=== PATIENT | male | born 1935 ===

== ENCOUNTER 2022-04-14 23:14 | Inpatient (IN) | payer OTHER, SELFPAY ==
--- NOTE | 2022-04-14 22:23 | HPE_ITS ---
Date of service: 04/14/22 Time of Service: 23:45 Assessment and Plan Assessment and plan (1) COVID-19: Status: Acute Assessment and plan: Admit to medical surgical floor. Treat with remdesivir, dexamethasone. Encourage proning, pulmonary toileting. supplement Vitamin C, D, zinc, melatonin. Ideally would be on anticoagulation, but the patient has Afib and he is not on blood thinners, per the ED doctor at [facility]. We will clarify if he is or is not on blood thinners with the VNA and make a decision as to how to proceed. (2) Secondary bacterial pneumonia: Status: Acute Assessment and plan: Treat with doxycycline and ceftriaxone. (3) Hypoxia: Status: Acute Assessment and plan: Due to above - as above. (4) Edema of left lower extremity: Assessment and plan: Chronic and I suspect this has to do with h/o CABG as the venous graft came from E. However, we will obtain a venous doppler to ensure that there is no DVT. (5) DVT prophylaxis: Status: Acute Assessment and plan: As above - we are holding off on starting dvt ppx or full anticoagulation until more is known about Mr Cardenas's history. Will also check hematest. (6) Discharge planning issues: Status: Acute Assessment and plan: DNR/DNI. History of Present Illness History of Present Illness Chief Complaint: Found to be hypoxic by a VNA nurse, cough for a couple of days Narrative: Mr Theresa Dowd) is an 86 year old male with PMHx of CAD, CVA with residual L sided weakness, CHF with unknown EF, Afib not on anticoagulation, who is being transferred to [facility] from [facility] ED due to lack of bed capacity there for COVID-19, secondary bacterial pneumonia, and hypoxia. Mr Cardenas is a [facility] patient. He answers a long time to most of the questions about his symptoms when I ask him. Today he had a visit from a VNA nurse who found him to be saturating in mid-80s on RA (he does not normally wear oxygen). The same was confirmed at [facility] ED, where the patient had required between 2 and 3 L of O2 by [place], desaturating d own to 85 on RA. He has had malaise, two days of cough productive of yellow sputum, shortness of breath, and fatigue. The patient also endorses some long- standing abdominal discomfort but not pain. Denies nausea and diarrhea. He tested positive for COVID-19 at the [facility] ED where he was febrile. His CXR at [facility] is unavailable for my review, but per Dr Bermeo of [facility] ED reveals Bilateral interstitial changes and a R-sided consolidation. He was initiated on remdesivir, dexamethasone, and empiric levofloxacin given suspicion for a secondary bacterial pneumonia. Due to lack of bed capacity at both [facility] and the [place], hospitalist admission at [facility] was requested. Patient is felt to be appropriate for a medical surgical floor. He is DNR/DNI. Satish states that he was the inspiration for the movie Captain Satish featuring Franck Barreto. I'm Captain Satish! Review of Systems All systems reviewed & are unremarkable except as noted in HPI and below PFSH All Active Problems (Updated 04/15/22 @ 00:23 by Roxann Shay MD) Discharge planning issues (Acute) DVT prophylaxis (Acute) Hypoxia (Acute) Secondary bacterial pneumonia (Acute) COVID-19 (Acute) Medical History (Updated 04/15/22 @ 00:23 by Roxann Shay MD) AAA (abdominal aortic aneurysm) Afib Blindness CAD (coronary artery disease) CHF (congestive heart failure) CVA (cerebral vascular accident) Edema of left lower extremity GERD (gastroesophageal reflux disease) Obesity Surgical History (Updated 04/15/22 @ 00:23 by Roxann Shay MD) 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) Family History (Updated 04/15/22 @ 00:22 by Roxann Shay MD) Other Family history unobtainable Social History Smoking/Tobacco Use Status: Former Tobacco Use Tobacco: How many years used: 30 Smoking risk assessment performed?: Yes Alcohol Intake: former Drug use: Never Substance use type: does not use Do you feel safe at home: Yes Do you feel safe in your relationship?: Yes Meds Allergies and Home Medications Allergies Allergy/AdvReac Type Severity Reaction Status Date / Time No Known Allergies Allergy Unverified 04/14/22 22:33 Allergy/Medication Comments:: Patient does not remember his medications. We will get the list from VNA in am. Exam Narrative Exam Narrative: General: A very pleasant elderly male with an excellent sense of humor, A&Ox3, looks comfortable in bed Neurological: A&Ox3 (knows it's the end of March of 2022), Limited ROM in LUE, forgetful, difficulty seeing, no focal deficits Psychiatric: Appropriate speech pattern/content Skin: Changes of chronic venous stasis dermatitis HEENT: Atraumatic, normocephalic, EOMI, MMM, clear oropharynx, no submandibular or cervical lymphadenopathy, no goiter or JVD Cardiovascular: RRR, no m/r/g Lungs: slight rhonchi B Gastrointestinal: soft, nontender, nondistended Genitourinary: deferred Extremities: +1 LLE edema (patient states this is chronic), no edema RLE, 1+ pedal pulses B, no c/c. Results Labs Result diagrams: 04/15/22 05:35 04/15/22 05:35 Labs: At [facility]: WBC 7.2 H/H 13.5/40.2 Plts 158 MCV 96.6 Segs 77 Lymphs 3 Monos 20 Chemistry: Na 139 K 4.2 Chloride 101 Bicarb 30 AG 8 BUN 18 Cr 1.33 Glucose 93 Ca 9.5 AST 21 ALT 31 Albumin 3.9 T. Bili 0.8 High Sensitivity Troponin I 23.9 pg/mL (considered normal)
[2022-04-14 23:30] VITALS: PULSE 78
[2022-04-14 23:41] VITALS: BP 107/75; PULSE 68; RESP 20; TEMP 37.6; O2SAT 96
[2022-04-15] VITALS (8 sets, daily range): BP systolic 125–136; BP diastolic 71–91; PULSE 71–94; RESP 18–19; TEMP 36.4–37.2; O2SAT 95–99
[2022-04-15] MEDS: Acetaminophen 325 MG TAB PO (03:44)
[2022-04-15] MEDS: Melatonin 3 MG TAB PO ×2 (03:45→20:47)
[2022-04-15 08:15] LABS: Abs Immature Grans 0.01 10^3/uL (0.0-0.06); Absolute Basophil Count 0.01 10^3/uL (0.0-0.2); Absolute Lymphocyte Count 0.79 10^3/uL (1.2-3.4); Absolute Monocyte Count 0.24 10^3/uL (0.1-0.8); Absolute Neutrophil Count 3.87 10^3/uL (1.2-6.7); Basophils % 0.2; HCT 37.1 % (40.0-50.0); HGB 12.5 g/dL (13.5-17.5); Immature Grans % 0.2; Lymphocytes % 16.1; MCH 31.7 pg (27.0-33.0); MCHC 33.7 % (32.0-36.0); MCV 94 fL (80-95); MPV 10.7 fL (8.0-11.0); Monocytes % 4.9; Neutrophils % 78.6; Platelet Count 142 10^3/uL (130-400); RBC 3.94 10^6/uL (4.36-5.78); RDW 13.2 % (11.8-14.1); RDW-SD 45.8 fL; WBC 4.92 10^3/uL (4.4-10.8)
[2022-04-15 08:29] LABS: Hemoglobin A1C 5.7 % (<5.7)
[2022-04-15] MEDS: DOXYCYCLINE 100 MG in Normal Saline 100 ML IVPB ×2 (08:35→21:02)
[2022-04-15] MEDS: Cholecalciferol (Vitamin D3) 1,000 UNIT TAB 2000 UNITS PO (08:35)
[2022-04-15] MEDS: Normal Saline Flush 10 ML SYR IVP ×2 (08:35→20:27)
[2022-04-15] MEDS: guaiFENesin 600 MG TABCR PO ×2 (08:35→20:46)
[2022-04-15] MEDS: Zinc Sulfate 220 MG TAB PO (08:35)
[2022-04-15] MEDS: Famotidine 20 MG TAB PO (08:35)
[2022-04-15] MEDS: Benzonatate 100 MG CAP PO ×3 (08:36→20:46)
[2022-04-15] MEDS: Ascorbic Acid 500 MG TAB 1000 MG PO ×2 (08:36→20:46)
[2022-04-15 08:38] LABS: INR 1.2 (0.9-1.1); Prothrombin Time 11.6 sec (9.3-11.0)
--- NOTE | 2022-04-15 08:43 | PDOC.CMIN ---
- If Service Date Differs Date of service: 04/15/22 Time of Service: 08:43 Care Management Initial Assess REASON FOR HOSPITALIZATION:: COVID-19, Secondary bacterial pneumonia, PAST MEDICAL HISTORY/PAST SURGICAL HISTORY:: All Active Problems (Updated 04/15/22 @ 00:23 by Roxann Shay MD). Discharge planning issues (Acute). DVT prophylaxis (Acute). Hypoxia (Acute). Secondary bacterial pneumonia (Acute). COVID-19 (Acute). Medical History (Updated 04/15/22 @ 00:23 by Roxann Shay MD). AAA (abdominal aortic aneurysm). Afib. Blindness. CAD (coronary artery disease). CHF (congestive heart failure). CVA (cerebral vascular accident). Edema of left lower extremity. GERD (gastroesophageal reflux disease). Obesity. Surgical History (Updated 04/15/22 @ 00:23 by Roxann Shay MD). H/O heart valve replacement with bioprosthetic valve. S/P CABG (coronary artery bypass graft) PREVIOUS FUNCTIONAL STATUS/SOCIAL/FAMILY SUPPORTS:: Popeye lives alone in [place], [place]. He is legally blind. He has 2 friends which are supportive, Lizeth and Akash. Lizeth provides the majority of his transportation needs and also helps him with his groceries. Popeye has a Sister in [facility]. He also has a Son in [place] (which he is not on speaking terms with). Popeye has an outdoor cat, which his friend Lizeth is feeding in his absence. Popeye is [facility] connected and has [facility] from [facility]. The VNA helps him manage his medications. Popeye's Truer [employer] in the community is Fernanda (he will try to locate her info for CM). Popeye is independent with his ADL's and uses a cane to ambulate. CURRENT FUNCTIONAL STATUS:: Popeye is on covid isolations, CM met with pt via phone. Popeye is alert, oriented, friendly and easy to engage in conversation. Popeye shares that he was able to sleep last night in the recliner chair. ADVANCE DIRECTIVES:: None on file, CM will offer forms Has patient been provided with info about the portal/API?: Yes Did the patient sign up for the portal?: No CODE STATUS:: DNR/DNI INSURANCE COVERAGE / FINANCIAL ISSUES:: Medicare. VA CURRENT HOME/COMMUNITY SERVICES/EQUIPMENT:: [facility] Connected (CM notified [facility] of admission). [facility]. [facility]. Has a Folded Cloth Taper-Fernanda PRIMARY CARE PHYSICIAN:: Sen Trimble POTENTIAL DISCHARGE NEEDS:: Follow up appointents, resumption of VNA services PATIENT/FAMILY EDUCATION NEEDS:: Review discharge plan of care, including instructions, medications, limitations and plan to follow up with community providers. ask me three. TRANSPORTATION:: Via private vehicle with friend Lizeth. PLAN:: Popeye requires inpatient admission for close monitoring and treatment of Covid, bacterial pneumonia and hypoxia. Pt is currently on covid precautions. Popeye is VA connected (CM notified of admission.) Anticipate, Popeye will discharge home with resumption of [facility] services when medically cleared by [facility]. Popeye will follow up with his community providers and discharge plan of care as prescribed.
[2022-04-15 08:47] LABS: ALT 25 U/L (16-63); AST 35 U/L (15-37); Albumin 3.5 g/dL (3.4-5.0); Alkaline Phosphatase 99 U/L (46-116); Anion Gap 11.2 mmol/L (3-11); BUN 18 mg/dL (7-18); Bilirubin, Total 0.5 mg/dL (0.2-1.0); CO2 25.8 mmol/L (21.0-32.0); Chloride 103 mmol/L (98-107); Ferritin 214 ng/mL (26-388); Glucose 147 mg/dL (74-106); Magnesium 2.1 mg/dL (1.8-2.4); Sodium 140 mmol/L (136-145); TSH (W/Ref FT4) 0.48 uIU/mL (0.36-3.74); Total Protein 7.5 g/dL (6.4-8.2)
[2022-04-15 08:57] LABS: Procalcitonin < 0.1 ng/mL
[2022-04-15 08:58] LABS: D-Dimer 1301 ng/mlFEU (<500)
[2022-04-15 08:59] LABS: Bilirubin, Direct 0.2 mg/dL (0.0-0.2); C-Reactive Protein 2.99 mg/dL (0.0-0.3); Creatine Kinase 403 U/L (39-308)
[2022-04-15] MEDS: Ipratropium/Albuterol 4 GM 120 PUFF INH IH ×4 (09:00→20:58)
[2022-04-15] MEDS: Gabapentin 100 MG CAP PO (13:09)
--- NOTE | 2022-04-15 16:16 | W.PM.PROGNOT ---
Date of Service Date of service: 04/15/22 Time of Service: 15:18 Assessment and Plan Assessment and plan (1) COVID-19: Status: Acute Assessment and plan: Now stable on RA Treat with remdesivir, dexamethasone. Encourage proning, pulmonary toileting. supplement Vitamin C, D, zinc, melatonin. Clarified his home meds and he is not on any anticoagulation routinely. Start therapeutic lovenox 80mg SC Q12. Possible d/c tomorrow if not hypoxic. (2) Secondary bacterial pneumonia: Status: Acute Assessment and plan: Treat with doxycycline and ceftriaxone. (3) Hypoxia: Status: Acute Assessment and plan: Now on RA with O2 sats in the upper 90's. (4) Edema of left lower extremity: Assessment and plan: Chronic and I suspect this has to do with h/o CABG as the venous graft came from [facility]. However, we will obtain a venous doppler to ensure that there is no DVT. (5) DVT prophylaxis: Status: Acute Assessment and plan: Lovenox; therapeutic dosing given Covid + and not ICU status. Will also check hematest. (6) Discharge planning issues: Status: Acute Assessment and plan: DNR/DNI. Subjective Subjective Patient reports: feels better and afebrile; denies nausea, vomiting or shortness of breath Interval history since last seen: Feels anxious, mild tremors of hands. This is not a chronic issue he reports. Exam Narrative Exam Narrative: General: A very pleasant elderly male with an excellent sense of humor, states he feels much better Neurological: A&Ox3, some difficulty with memory. Psychiatric: Appropriate speech pattern/content Skin: Changes of chronic venous stasis dermatitis otherwise w/o rashes/lesions HEENT: MMM, sclera clear. Cardiovascular: RRR, no m/r/g Lungs:clear, diminished in the bases. Gastrointestinal: soft, nontender, nondistended Extremities: +1 LLE edema (patient states this is chronic), no edema RLE Objective Last Vital Signs Temp 37.2 C 04/15/22 15:29 Pulse 76 04/15/22 15:29 Resp 18 04/15/22 15:29 BP 128/78 04/15/22 15:29 Pulse Ox 97 04/15/22 15:29 Laboratory Results - last 24 hr 04/15/22 04/15/22 04/15/22 05:35 08:00 08:00 WBC 4.92 RBC 3.94 L Hgb 12.5 L Hct 37.1 L MCV 94 MCH 31.7 MCHC 33.7 RDW 13.2 Plt Count 142 MPV 10.7 Immature Gran % 0.2 Neutrophils % 78.6 Lymphocytes % 16.1 Monocytes % 4.9 Eosinophils % 0.0 Basophils % 0.2 Nucleated RBC % 0.0 Absolute Neutrophils 3.87 Absolute Lymphocytes 0.79 L Absolute Monocytes 0.24 Absolute Eosinophils 0.00 Absolute Basophils 0.01 PT INR D-Dimer Sodium 140 Potassium 4.0 Chloride 103 Carbon Dioxide 25.8 Anion Gap 11.2 H BUN 18 Creatinine 1.0 Estimated GFR/1.73 m2 >= 60.00 Glucose 147 H Hemoglobin A1c 5.7 Calcium 9.0 Magnesium 2.1 Ferritin 214 Total Bilirubin 0.5 Conjugated Bilirubin 0.2 AST 35 ALT 25 Alkaline Phosphatase 99 Creatine Kinase 403 H C-Reactive Protein 2.99 H Total Protein 7.5 Albumin 3.5 Procalcitonin TSH 0.48 04/15/22 04/15/22 08:00 08:00 WBC RBC Hgb Hct MCV MCH MCHC RDW Plt Count MPV Immature Gran % Neutrophils % Lymphocytes % Monocytes % Eosinophils % Basophils % Nucleated RBC % Absolute Neutrophils Absolute Lymphocytes Absolute Monocytes Absolute Eosinophils Absolute Basophils PT 11.6 H INR 1.2 H D-Dimer 1301 H Sodium Potassium Chloride Carbon Dioxide Anion Gap BUN Creatinine Estimated GFR/1.73 m2 Glucose Hemoglobin A1c Calcium Magnesium Ferritin Total Bilirubin Conjugated Bilirubin AST ALT Alkaline Phosphatase Creatine Kinase C-Reactive Protein Total Protein Albumin Procalcitonin < 0.1 TSH
[2022-04-15] MEDS: Enoxaparin 80 MG/0.8 ML SYR SC (17:06)
[2022-04-15] MEDS: cefTRIAXone 1 GM/50 ML BAG IVPB (20:21)
[2022-04-15] MEDS: Dexamethasone 4 MG/ML VIAL 6 MG IVP (20:22)
[2022-04-15] MEDS: Budesonide/Formoterol 80/4.5 6.9 GM 60 PUFF INH IH (20:28)
[2022-04-15] MEDS: REMDESIVIR 100 MG in Normal Saline 250 ML 250 MG IVPB (20:29)
[2022-04-15] MEDS: Normal Saline 500 ML 30 ML IV (20:29)
[2022-04-15] MEDS: LORazepam 0.5 MG TAB PO (20:47)
[2022-04-15] MEDS: dilTIAZem CD 120 MG CAPCR PO (20:47)
[2022-04-15] MEDS: Gabapentin 100 MG CAP 200 MG PO (21:07)
[2022-04-16 00:58] VITALS: BP 113/77; PULSE 79; RESP 20; TEMP 36.7; O2SAT 98
[2022-04-16 05:04] LABS: Vitamin D 25 Total 66.7 ng/mL (30-100)
[2022-04-16 05:08] VITALS: BP 105/67; PULSE 78; RESP 19; TEMP 36.6; O2SAT 98
[2022-04-16] MEDS: Enoxaparin 80 MG/0.8 ML SYR SC (05:10)
[2022-04-16 07:26] VITALS: PULSE 85
[2022-04-16 07:29] LABS: HCT 38.7 % (40.0-50.0); HGB 13.2 g/dL (13.5-17.5); MCH 31.5 pg (27.0-33.0); MCHC 34.1 % (32.0-36.0); MCV 92 fL (80-95); MPV 10.5 fL (8.0-11.0); Platelet Count 158 10^3/uL (130-400); RBC 4.19 10^6/uL (4.36-5.78); RDW 13.3 % (11.8-14.1); RDW-SD 45.5 fL
[2022-04-16] MEDS: Budesonide/Formoterol 80/4.5 6.9 GM 60 PUFF INH IH (07:39)
[2022-04-16] MEDS: Ipratropium/Albuterol 4 GM 120 PUFF INH IH ×2 (07:39→11:22)
[2022-04-16 07:52] LABS: C-Reactive Protein 1.76 mg/dL (0.0-0.3); Ferritin 238 ng/mL (26-388)
[2022-04-16 07:57] LABS: D-Dimer 1094 ng/mlFEU (<500)
[2022-04-16] MEDS: Gabapentin 100 MG CAP PO (08:16)
[2022-04-16] MEDS: DOXYCYCLINE 100 MG in Normal Saline 100 ML IVPB (08:16)
[2022-04-16] MEDS: Omeprazole 20 MG CAPCR 40 MG PO (08:16)
[2022-04-16] MEDS: Cholecalciferol (Vitamin D3) 1,000 UNIT TAB 2000 UNITS PO (08:16)
[2022-04-16] MEDS: Zinc Sulfate 220 MG TAB PO (08:17)
[2022-04-16] MEDS: Benzonatate 100 MG CAP PO (08:17)
[2022-04-16] MEDS: Metoprolol CR 100 MG TABCR 200 MG PO (08:17)
[2022-04-16] MEDS: Cetirizine 10 MG TAB PO (08:17)
[2022-04-16] MEDS: Famotidine 20 MG TAB PO (08:17)
[2022-04-16] MEDS: guaiFENesin 600 MG TABCR PO (08:17)
[2022-04-16] MEDS: dilTIAZem CD 120 MG CAPCR PO (08:17)
[2022-04-16] MEDS: Ascorbic Acid 500 MG TAB 1000 MG PO (08:17)
[2022-04-16] MEDS: Furosemide 20 MG TAB PO (08:18)
[2022-04-16 08:20] VITALS: BP 100/71; PULSE 98; RESP 18; TEMP 36.7; O2SAT 94
--- NOTE | 2022-04-16 09:12 | W.PM.DS.N ---
Date of service: 04/16/22 Time of Service: 08:12 DS: Diagnosis Discharge Diagnosis (1) COVID-19: Status: Acute (2) Secondary bacterial pneumonia: Status: Acute (3) Hypoxia: Status: Acute (4) Edema of left lower extremity: (5) DVT prophylaxis: Status: Acute (6) Discharge planning issues: Status: Acute Discharge Plan Disposition Patient Disposition: HOME Condition: Good Discharge Details Reason For Visit: COVID-19 w/ secondary bactrerial pneumonia, hypoxi Admit Date/Time: 04/14/22 23:14 Admit Provider: Roxann Shay Attending Provider: Roxann Shay Primary Care Provider: Sen Trimble Hospital Course Hospital Course: Mr Theresa Dowd) is an 86 year old male with PMHx of CAD, CVA with residual L sided weakness, CHF with unknown EF, Afib not on anticoagulation, who is being transferred to [facility] from [facility] ED due to lack of bed capacity there for COVID-19, secondary bacterial pneumonia, and hypoxia. Mr Cardenas is a [facility] patient. He answers a long time to most of the questions about his symptoms when I ask him. Today he had a visit from a A nurse who found him to be saturating in mid-80s on RA (he does not normally wear oxygen). The same was confirmed at [facility] ED, where the patient had required between 2 and 3 L of O2 by [place], desaturating down to 85 on RA. He has had malaise,? two days of cough productive of yellow sputum, shortness of breath, and fatigue. The patient also endorses some long-standing abdominal discomfort but not pain. Denies nausea and diarrhea. He tested positive for COVID-19 at the [facility] ED where he was febrile. His CXR at [facility] is unavailable for my review, but per Dr Bermeo of [facility] ED reveals Bilateral interstitial changes and a R-sided consolidation. He was initiated on remdesivir, dexamethasone, and empiric levofloxacin given suspicion for a secondary bacterial pneumonia. Due to lack of bed capacity at both [facility] and the [place], hospitalist admission at [facility] was requested. Patient is felt to be appropriate for a medical surgical floor. He is DNR/DNI. aStish states that he was the inspiration for the movie Captain Covarrubias featuring Franck Barreto. I'm Captain Covarrubias! Follow up with PCP in 1 week. Home Meds and New Rx's Prescriptions: New amoxicillin-pot clavulanate 875-125 mg tablet 1 tab PO BID Qty: 10 0RF Continued budesonide-formoterol [Symbicort] 80-4.5 mcg/actuation Hfa Aerosol Inhaler 2 puff INHALATION BID Rx Instructions: STRENGTH NOT INDICATED IN HOME HEALTH RECORDS, UNSURE IF 80/4.5 OR 160/4.5 cetirizine 10 mg Tablet 10 mg PO DAILY diltiazem HCl 120 mg Capsule,Extended Release 24hr 120 mg PO BID ferrous gluconate 324 mg (36 mg iron) Tablet 324 mg PO BID fluticasone propion-salmeterol [Advair Diskus] 250-50 mcg/dose Blister With Device 1 inh INHALATION BID sumatriptan succinate 100 mg Tablet 100 mg PO Q2H PRN PRN (Reason: Migraine Headache) metoprolol succinate 200 mg Tablet Extended Release 24 Hr 200 mg PO DAILY omeprazole 20 mg Capsule,Delayed Release(Dr/Ec) 40 mg PO DAILY zolpidem 5 mg Tablet 5 mg PO HS PRN PRN (Reason: Sleep) furosemide 20 mg Tablet 20 mg PO DAILY gabapentin 100 mg Capsule 100 mg PO QAM gabapentin 100 mg Capsule 200 mg PO HS albuterol sulfate 90 mcg/actuation Hfa Aerosol Inhaler 2 inh INHALATION QID PRN PRN Discharge Instructions Instructions: Community Acquired Pneumonia (DC) Stand Alone Forms: Nursing Discharge Form Activity:: Activity as Tolerated Equipment/Supplies:: No Equipment Needed Diet:: Resume usual home diet Discharge Orders Discharge Orders: Discharge Order (Routine); Ordered 04/16/22 Ordered By: Manolo Lamb DS: Summary Time Spent with Patient providing and/or coordinating discharge services: Greater than 30 minutes Status at Discharge Functional status at discharge: independent ambulation Overall status at discharge: patient is progressing back to baseline Mental Status: mental status grossly normal Speech and Movement: speech and movement normal Mood: congruent mood Affect: normal affect Exam Narrative Exam Narrative: General: A very pleasant elderly male with an excellent sense of humor, states he feels much better Neurological: A&Ox3, some difficulty with memory. Psychiatric: Appropriate speech pattern/content Skin: Changes of chronic venous stasis dermatitis otherwise w/o rashes/lesions HEENT: MMM, sclera clear. Cardiovascular: RRR, no m/r/g Lungs:clear, diminished in the bases. Gastrointestinal: soft, nontender, nondistended Extremities: +1 LLE edema (patient states this is chronic), no edema RLE Psych Mental Status: mental status grossly normal Speech and Movement: speech and movement normal Mood: congruent mood Affect: normal affect DS: Data Vitals/I&O Vitals and I&O: Vital Signs Temperature 36.7 C 04/16/22 08:20 Temperature Source Tympanic 04/16/22 08:20 Pulse 98 H 04/16/22 08:20 Pulse Rhythm Irregular 04/16/22 03:00 Respiratory Rate 18 04/16/22 08:20 Respiratory Effort 04/16/22 03:00 Respiratory Depth Normal 04/16/22 03:00 Respiratory Pattern Normal 04/16/22 03:00 Blood Pressure 100/71 04/16/22 08:20 Pulse Oximetry 94 04/16/22 08:20 Oxygen Delivery Method Room Air 04/16/22 08:20 Oxygen Flow Rate 0 04/16/22 08:20 Pain Level 0 04/16/22 08:20 Intake & Output 04/15/22 04/15/22 04/16/22 11:59 23:59 11:59 Intake Total 350 / 1073 723 / 1073 Balance 350 / 1073 723 / 1073 Intake: IV 100 / 573 473 / 573 Oral 250 / 500 250 / 500 Other: Urine Color Yellow Comment independant unable to measure pt flushed the toilet immediately Voiding Methods Toilet Data Completed and Pending Labs on day of discharge: Labs from last 24 hours 04/16/22 04/16/22 04/16/22 07:10 07:10 07:10 WBC 7.20 RBC 4.19 L Hgb 13.2 L Hct 38.7 L MCV 92 MCH 31.5 MCHC 34.1 RDW 13.3 Plt Count 158 MPV 10.5 D-Dimer 1094 H Ferritin 238 C-Reactive Protein 1.76 H 25-OH Vitamin D Total 04/15/22 08:00 WBC RBC Hgb Hct MCV MCH MCHC RDW Plt Count MPV D-Dimer Ferritin C-Reactive Protein 25-OH Vitamin D Total 66.7 PFSH All Active Problems Discharge planning issues (Acute) DVT prophylaxis (Acute) Hypoxia (Acute) Secondary bacterial pneumonia (Acute) COVID-19 (Acute) Medical History AAA (abdominal aortic aneurysm) Afib Blindness CAD (coronary artery disease) CHF (congestive heart failure) CVA (cerebral vascular accident) Edema of left lower extremity GERD (gastroesophageal reflux disease) Obesity Surgical History 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
--- NOTE | 2022-04-16 10:19 | PT.INIE ---
PT Notes Visit Reasons: COVID-19 w/ secondary bactrerial pneumonia, hypoxi Inpatient Physical Therapy Evaluation Date: 04/16/2022 Referring Doctor: Dr. Shay PT Orders: PT CONSULT: Limited Ability Precautions: COVID-19, standard Patient Profile/Admitting Diagnosis: Satish is a pleasant 86-year-old male admitted to [facility] from [facility] ED with decreased O2 sat noted by VNA. Patient has been complaining of a persistent cough. Patient was admitted 04/14/2022. Patient diagnosed with COVID-19. PMHX: CAD, CVA with residual left-sided weakness, CHF, A. fib. Social History/Home Situation: Patient lives alone has VNA services a few days a week at home. Current Functional Limitations: Patient had complained of shortness of breath although evaluation today demonstrate no limitations with regard to shortness of breath. Weakness and loss of range of motion of left upper extremity related to previous CVA. Patient is blind secondary to macular degeneration. Equipment Owned/DME: Patient has a walking stick in his room he states that he uses this occasionally when he feels unsteady at home. Subjective: I am ready to go home patient states that he is independent at home he is legally blind and ambulates occasionally with his walking stick. He states that he has no problems getting in and out of his shower and cannot wait to have a shower at home. He states that he has grab bars for safety and has a couple of stairs getting in and out of his home that have a railing and he feels comfortable maneuvering this. Objective: General Observation: Patient is standing when presented in treatment room with wide base of support but steady. Mental Status: AO x3. Patient able to carry on full conversation and is alert and orientated. Pain: Patient denies pain at this time. Vital Signs: O2 at 95 on room air. ROM: Right Upper Extremity: W N L Left Upper Extremity: Limited range of motion left upper extremity although functional secondary to previous CVA. Right Lower Extremity: WF L Left Lower Extremity: WFL Strength: Right Upper Extremity: WFL Left Upper Extremity: Limited but functional following left CVA. Right Lower Extremity: WFL Left Lower Extremity: WFL Sensation: No complaints of altered sensation although increased swelling left lower extremity. Bed Mobility/Transfers: Independent with transfers in and out of bed, in and out of chair. Gait: Ambulate x20 feet without assistive device safely. Balance: Static Sitting: W N L Dynamic Sitting: WNL Static Standing: WNL Dynamic Standing: Unable to stand on single-leg although able to attempt to stand on single-leg. Able to get into tandem stand with steadying self but unable to stay standing in this position. Patient asked to utilize walking stick for these tasks I believe given this he is safe at home. Special Tests: Mobility Limitations Standardized Measure [facility] 6 clicks Basic Mobility Inpatient Short Form: Raw Score: 23 CMS Score: 11.2%. Informed Consent/Education: Patient instructed in purpose of PT consult and plan of care. Assessment: Patient is a 86year old malereferred to physical therapy services with the diagnosis of COVID-19. Patient presents with clinical signs and symptoms consistent with COVID-19, he is somewhat unsteady on his feet however this is likely pre-existing status. He reports that he participates in exercise on a daily basis working on his balance. He states he uses the walking stick when unsteady. I feel patient will be able to be discharged with previous level of home services and no need for skilled services at this time. Patient is assessed as a Low [id number] Plan of Care/Treatment Plan: Patient is being discharged to home today from the hospital. It appears that he is independent with mobility around his home with limiting factors being loss of vision. He utilizes his walking stick as needed at home and feels comfortable with his home surroundings. No need for skilled physical therapy at this time. DISCHARGE RECOMMENDATIONS: Home with services as previously received. TREATMENT CODE/TIME: [id number]/'
== END 2022-04-16 11:51 | disposition home or self-care (01) | DRG 177 ==
PROVIDERS: Family Medicine; Admitting Provider Internal Medicine; PCP Internal Medicine; Visit Provider Internal Medicine
DX: U07.1 COVID-19 (principal); J15.9 Unspecified bacterial pneumonia; I69.354 Hemiplegia and hemiparesis following cerebral infarction affecting left non-dominant side; I48.91 Unspecified atrial fibrillation; R09.02 Hypoxemia; R60.0 Localized edema; Z95.1 Presence of aortocoronary bypass graft; I25.10 Atherosclerotic heart disease of native coronary artery without angina pectoris; I50.9 Heart failure, unspecified; Z66 Do not resuscitate; Z95.3 Presence of xenogenic heart valve; Z87.891 Personal history of nicotine dependence
CPT/HCPCS: 36415; 80048; 80076; 82306; 82550; 84145; 85027; 94640; 97161; 82728; 83036; 83735; 84443; 85025; 85379; 85610; 86140; 94664; 94667; 94760; 99223; 99233; J0248; J0696; J1100; J1650; J3490